=== PATIENT | male | born 1960 | race Caucasian/White ===

== ENCOUNTER 2018-05-27 14:09 | Inpatient (IN) | payer MEDICAID | END 2018-06-02 12:30 | disposition home health service (06) | LOC: ER 14:09 → ED HOLD 17:43 → SUR 3N 20:10 ==

== ENCOUNTER 2019-09-20 08:31 | Inpatient (IN) | payer MEDICAID ==
[~2019-09-20] VITALS: Ht 175.3 cm; Wt 109.0 kg
[~2019-09-20 08:31] MED LIST: AMLO5TAB16 PO; ATOR40TA72 PO; BARIUM SULFATE 700 MG TABLET PO ONE; FURO40TA4 PO; HYDR-4383 PO; PANT-47 PO; POTA8TAB8 PO; RIVA20TA PO; SUCR1ORA15 PO
[2019-09-20] MEDS ORDERED: CefTRIAXone/D5W-Rocephin 1gm 50 ML IV ONE (08:50)
[2019-09-20] MEDS ORDERED: vancomycin/NS 1 GM ADD-VANTAGE 250 ML IV ONE (08:50)
--- NOTE | 2019-09-20 08:57 | NUR ---
WAITNING ABX FROM PHARMACY. THEY WILL CALL WHEN READY.
--- NOTE | 2019-09-20 09:56 | NUR ---
MULTIPLE ATTEMPTS FOR BLOOD DRAW/IV WITHOUT SUCCESS. PICC RN PAGED AND AWARE. COVID SWAB DONE AND SENT.
--- NOTE | 2019-09-20 10:45 | NUR ---
PICC RN AT BEDSIDE FOR BETTER IV ACCESS AND BLOOD DRAW.
[2019-09-20 11:11] LABS: BASOPHILS # (AUTO) 0.1 X10'3 (0-0.2); BASOPHILS % (AUTO) 0.3 % (0-1); EOSINOPHILS % (AUTO) 0.1 % (0-6); HEMOGLOBIN 12.7 g/dl (14.0-17.9); LYMPHOCYTES # (AUTO) 0.7 X10'3 (1.1-4.8); LYMPHOCYTES % (AUTO) 3.6 % (21-51); MEAN CORPUSCULAR HEMOGLOBIN 27.4 PG (27.0-31.0); MEAN CORPUSCULAR HGB CONC 32.6 g/dL (33.0-36.5); MEAN CORPUSCULAR VOLUME 84.1 FL (78-98); MEAN PLATELET VOLUME 7.9 FL (7.4-10.4); MONOCYTES # (AUTO) 0.5 X10'3 (0-0.9); MONOCYTES % (AUTO) 2.6 % (2-12); NEUTROPHILS # (AUTO) 18.4 X10'3 (1.8-7.7); NEUTROPHILS % (AUTO) 93.4 % (42-75); PLATELET COUNT 289 X10'3 (140-440); RED BLOOD COUNT 4.64 X10'6 (4.70-6.10); WHITE BLOOD COUNT 19.7 X10'3 (4.5-11.0)
--- NOTE | 2019-09-20 11:13 | NUR ---
MID LINE ACCESS AND LAB DRAW WITH CXS DONE.
[2019-09-20 11:21] LABS: PARTIAL THROMBOPLASTIN TIME 27 SECONDS (22-32)
[2019-09-20 11:22] LABS: ALANINE AMINOTRANSFERASE 98 U/L (12-78); ALBUMIN 2.8 G/DL (3.4-5.0); ALBUMIN/GLOBULIN RATIO 0.7 (1.1-1.5); ALKALINE PHOSPHATASE 150 IU/L (46-116); ANION GAP 11 (8-16); ASPARTATE AMINO TRANSFERASE 62 U/L (10-37); BILIRUBIN,TOTAL 0.7 MG/DL (0.1-1.0); BLOOD UREA NITROGEN 28 MG/DL (7-18); BUN/CREATININE RATIO 11.3 (5.4-32.0); CALCIUM 7.7 MG/DL (8.5-10.1); CHLORIDE 106 MMOL/L (99-107); CREATININE 2.47 MG/DL (0.60-1.10); GLUCOSE 120 MG/DL (70-104); MAGNESIUM 1.8 MG/DL (1.5-2.4); POTASSIUM 3.9 MMOL/L (3.5-5.1); SODIUM 141 MMOL/L (135-145); TOTAL CARBON DIOXIDE 24.3 MMOL/L (24-32); TOTAL PROTEIN 6.9 G/DL (6.4-8.2); eGFR 27 ML/MIN
[2019-09-20] MEDS ORDERED: ringers solution, lacted 1,000 ML IV ONE ×4 (11:30→13:10)
--- NOTE | 2019-09-20 11:34 | NUR ---
assumed care of pt from Ngoc LOVE, Dr. Rose gave verbal order for lim, IVF bolus of LR per sespis protocol, pt has already received 500ml of IVF, Ngoc LOVE is assisting me with pt care at this time, CT on hold until covid results come back, per lab covid needs to be redone
[2019-09-20] MEDS ORDERED: acetaminophen 325mg tablet PO ONE ×2 (11:45→18:45)
--- NOTE | 2019-09-20 11:53 | NUR ---
temp re-checked. ua obtained, second covid swab sent as lab stated first was invalid.
[2019-09-20 12:00] LABS: CLARITY,URINE SLIGHTLY CLOUDY (Clear); GLUCOSE, URINE 100 mg/dl (Neg); KETONES,URINE TRACE mg/dl (Neg); LEUKOCYTE ESTERASE ,URINE NEGATIVE (Neg); NITRITES, URINE NEGATIVE (Neg); OCCULT BLOOD,URINE NEGATIVE (Neg); PH,URINE 6.5 (4.8-8.0); PROTEIN,URINE TRACE mg/dl (Neg)
[2019-09-20 12:01] LABS: COLOR,URINE DARK YELLOW (Yellow); UA COLLECTION TYPE CLN CATCH MIDSTREAM
[2019-09-20 12:09] LABS: MUCUS STRANDS MANY /LPF (Neg); SQUAMOUS EPITHELIAL CELL,UR FEW /LPF (FEW); TRANSITIONAL EPI CELLS,URINE FEW /HPF
[2019-09-20 12:11] LABS: BACTERIA,URINE NONE SEEN /HPF (Neg); CAL OXALATE CRYSTALS 2+ /HPF (NEGATIVE); RBC,URINE 0-2 /HPF (0-2); RENAL CELLS, URINE FEW /HPF
--- NOTE | 2019-09-20 13:10 | NUR ---
pt to CT, covid was negative, Dr Rose aware of temp 103.3, gave verbal order to give only 2 liters NS, 2nd liter infusing w/o, will set pt up for LP, pt is pleasantly confused, GCS 14, resp even and unlabored, skin p/w/d, mouth is very dry, pt had small soft, brown bowel movement
--- NOTE | 2019-09-20 13:21 | NUR ---
belongings placed in bag--has 1 pr shoes, socks, sweat pants, white tshirt, underwear were thrown away per pt request as he had bowel movement in them
[2019-09-20 13:33] LABS: URINE AMPHETAMINE SCREEN POSITIVE (Neg); URINE BARBITUATE SCREEN NEGATIVE (Neg); URINE BENZODIAZEPINES SCREEN NEGATIVE (Neg); URINE CANNABINOID SCREEN NEGATIVE (Neg); URINE COCAINE SCREEN NEGATIVE (Neg); URINE METHADONE SCREEN NEGATIVE (Neg); URINE OPIATE SCREEN NEGATIVE (Neg); URINE PHENCYCLIDINE SCREEN NEGATIVE (Neg)
[2019-09-20] MEDS ORDERED: ondansetron/PF 4mg/2ml inj IV ONE (14:25)
--- NOTE | 2019-09-20 14:25 | NUR ---
LUMBAR PUNCTURE DONE, HAD DIARRHEA--BABY YELLOW AND COFFEE GRD EMESIS, DR BRENNAN AWARE
[2019-09-20] MEDS: normal saline 1000ml 1,000 ML IV SCH (14:56)
[2019-09-20 14:57] LABS: GLUCOSE,CSF 80 MG/DL (40-75); TOTAL PROTEIN,CSF 58 MG/DL (15-45)
[2019-09-20] MEDS ORDERED: magnesium 2GM in 50ml NS 50 ML IV PRN (15:00)
[2019-09-20] MEDS ORDERED: magnesium Cl slow-release 64mg tablet PO PRN (15:00)
[2019-09-20] MEDS ORDERED: potassium CL 10mEq/100ml bag 100 ML IV PRN ×2 (15:00)
[2019-09-20] MEDS ORDERED: magnesium 4gm in 100ml NS 100 ML IV PRN (15:00)
[2019-09-20] MEDS ORDERED: ondansetron/PF 4mg/2ml inj IV PRN (15:00)
[2019-09-20] MEDS ORDERED: potassium Cl 20 mEq SR tablet PO PRN ×2 (15:00)
--- NOTE | 2019-09-20 15:04 | NUR ---
pt to CT,
[2019-09-20 15:11] LABS: LYMPHOCYTES,CSF 58 % (40-80); MONOCYTES,CSF 13 % (15-45); NEUTRO,CSF 29 % (0-6)
[2019-09-20 15:16] LABS: APPEARANCE,CSF CLEAR; CSF SUPERNATANT COLOR COLORLESS; CSF VOLUME 4 ML; TUBE# COUNTED 1; TUBE# COUNTED 4
[2019-09-20 15:18] LABS: CSF RBC 1675 /CU MM (0); CSF RBC 7 /CU MM (0); CSF WBC CT 4 /CU MM (0-5)
[2019-09-20 15:19] LABS: CSF WBC CT 4 /CU MM (0-5)
[2019-09-20] MEDS ORDERED: ipratropium/albuterol 3ml nebule NEB ONE (16:40)
--- NOTE | 2019-09-20 16:40 | NUR ---
pt incontinent to baby yellow stool, cleaned pt up, pt also c/o SOB, talking 5-6 word sentences, coarse wheezes bilaterally, Dr Pink at bedside to evaluate pt, difficult to obtain accurate pulse ox,
--- NOTE | 2019-09-20 16:48 | NUR ---
RT at bedside
[2019-09-20 17:16] LABS: ABG BASE EXCESS -0.9 mmol/L (-2.0-2.0); ABG HCO3 23.4 mmol/L (22.0-26.0); ABG OXYGEN SATURATION 66.6 % (94-97); ABG PO2 (T) 33.5 mmHg (75.0-100.0); ALLEN'S TEST POSITIVE; FLOW 4 L/min; FMetHb 0.1 % (0.0-1.5); FO2Hb 65.9 % (94-97); TOTAL HEMOGLOBIN 14.6 G/dl (14.0-18.0)
[2019-09-20 17:30] LABS: ABG BASE EXCESS 0.3 mmol/L (-2.0-2.0); ABG OXYGEN SATURATION 83.8 % (94-97); ABG PCO2 (T) 32.1 mmHg (35.0-48.0); ABG PO2 (T) 44.6 mmHg (75.0-100.0); ALLEN'S TEST POSITIVE; FCOHb 1.2 % (0.0-3.9); FLOW 15 L/min; FMetHb 0.3 % (0.0-1.5); FO2Hb 82.5 % (94-97); TOTAL HEMOGLOBIN 14.5 G/dl (14.0-18.0)
--- NOTE | 2019-09-20 18:39 | NUR ---
Dr Pink to consult with ICU, pt remains restless, vomiting small amounts of coffee ground emesis, incontinent of bowel, cleaned pt up again, pt is remains GCS 14, follows simple commands, pt to be moved to room 3, difficult to obtain accurate pulse ox
--- NOTE | 2019-09-20 18:51 | NUR ---
Pt was staurating in the 70s on 4 liters, pt sat 91 on 15 liters non-rebreather. MD navarrete
[2019-09-20] MEDS: azithromycin/NS 500mg/250ml 250 ML IV SCH (18:56)
[2019-09-20] MEDS ORDERED: diltiazem 5mg/ml 5ml inj. IV ONE (19:25)
[2019-09-20] MEDS ORDERED: diltiazem-D5W 125mg/125ml 125 ML IV SCH (19:25)
[2019-09-20] MEDS: K and/or MAG REPLACEMENT MC SCH (20:00)
[2019-09-20] MEDS: diltiazem-NS 100mg/100ml 100 ML IV SCH (20:08)
--- NOTE | 2019-09-20 20:22 | NUR ---
PT HAD LOOSE BOWEL MOVEMENT, CLEANED PT UP AGAIN, WAITING TO BE EVALUATED BY ICU
[2019-09-20] MEDS ORDERED: heparin 10,000 units/1 ML INJ IV ONE (21:25)
[2019-09-20] MEDS ORDERED: heparin 10,000 units/1 ML INJ IV PRN (21:25)
--- NOTE | 2019-09-20 21:25 | NUR ---
pt is resting quietly on gurney, has been evaluated by Tian BIRD, plan to admit to ICU, will remain on NRB at this time
[2019-09-20] MEDS: heparin 25,000 UNIT/250ml bag 250 ML IV SCH (22:02)
--- NOTE | 2019-09-20 22:05 | NUR ---
heparin gtt started per protocol, pt continues to rest quietly on bed, resp even and unlabored, on NRB
[2019-09-20 23:00] VITALS: BP 120/57
[2019-09-20 23:11] LABS: ABG BASE EXCESS -4.7 mmol/L (-2.0-2.0); ABG HCO3 19.6 mmol/L (22.0-26.0); ABG OXYGEN SATURATION 95.3 % (94-97); ABG PCO2 (T) 34.8 mmHg (35.0-48.0); ABG PO2 (T) 80.9 mmHg (75.0-100.0); ALLEN'S TEST POSITIVE; FCOHb 0.1 % (0.0-3.9); FLOW 15 L/min; FMetHb 0.1 % (0.0-1.5); FO2Hb 95.1 % (94-97); PATIENT TEMPERATURE 37.4; TOTAL HEMOGLOBIN 13.2 G/dl (14.0-18.0)
[2019-09-21] VITALS (25 sets, daily range): BP systolic 107–154; BP diastolic 56–88
--- NOTE | 2019-09-21 00:05 | NUR ---
pt has red rash all over abdomen and chest. Pt received IV vancomycin in the ED. LILLIE Durand notified. no orders received. Pt having coffee ground emesis, on heparin drip. [employer] notified- will recheck morning labs.
[2019-09-21] MEDS: normal saline 1000ml 1,000 ML IV SCH (00:56)
[2019-09-21 05:55] LABS: ALBUMIN 2.4 G/DL (3.4-5.0); ANION GAP 8 (8-16); BLOOD UREA NITROGEN 43 MG/DL (7-18); BUN/CREATININE RATIO 20.2 (5.4-32.0); CALCIUM 7.6 MG/DL (8.5-10.1); CHLORIDE 107 MMOL/L (99-107); CREATININE 2.13 MG/DL (0.60-1.10); GLUCOSE 127 MG/DL (70-104); MAGNESIUM 1.9 MG/DL (1.5-2.4); POTASSIUM 4.2 MMOL/L (3.5-5.1); SODIUM 139 MMOL/L (135-145); TOTAL CARBON DIOXIDE 24.5 MMOL/L (24-32); eGFR 32 ML/MIN
[2019-09-21 06:14] LABS: BASOPHILS # (AUTO) 0.1 X10'3 (0-0.2); BASOPHILS % (AUTO) 0.6 % (0-1); EOSINOPHILS % (AUTO) 0.1 % (0-6); HEMATOCRIT 39.6 % (42.0-52.0); HEMOGLOBIN 12.9 g/dl (14.0-17.9); LYMPHOCYTES # (AUTO) 1.5 X10'3 (1.1-4.8); LYMPHOCYTES % (AUTO) 12.6 % (21-51); MEAN CORPUSCULAR HEMOGLOBIN 28.2 PG (27.0-31.0); MEAN CORPUSCULAR HGB CONC 32.7 g/dL (33.0-36.5); MEAN CORPUSCULAR VOLUME 86.2 FL (78-98); MONOCYTES # (AUTO) 0.4 X10'3 (0-0.9); NEUTROPHILS # (AUTO) 9.9 X10'3 (1.8-7.7); NEUTROPHILS % (AUTO) 83.7 % (42-75); PLATELET COUNT 192 X10'3 (140-440); RED BLOOD COUNT 4.59 X10'6 (4.70-6.10); RED CELL DISTRIBUTION WIDTH 16.5 % (11.5-14.5); WHITE BLOOD COUNT 11.8 X10'3 (4.5-11.0)
--- NOTE | 2019-09-21 06:20 | NUR ---
Report received from KATE Colon
[2019-09-21] MEDS: K and/or MAG REPLACEMENT MC SCH ×2 (07:52→18:41)
[2019-09-21] MEDS ORDERED: CefTRIAXone/D5W-Rocephin 1gm 50 ML IV SCH (08:00)
[2019-09-21] MEDS: azithromycin/NS 500mg/250ml 250 ML IV SCH (08:44)
[2019-09-21] MEDS: diltiazem-NS 100mg/100ml 100 ML IV SCH (08:45)
[2019-09-21] MEDS: heparin 25,000 UNIT/250ml bag 250 ML IV SCH (10:28)
[2019-09-21 10:43] LABS: CLARITY,URINE SLIGHTLY CLOUDY (Clear); COLOR,URINE YELLOW (Yellow); GLUCOSE, URINE 100 mg/dl (Neg); KETONES,URINE NEGATIVE (Neg); LEUKOCYTE ESTERASE ,URINE NEGATIVE (Neg); NITRITES, URINE NEGATIVE (Neg); OCCULT BLOOD,URINE TRACE-INTACT (Neg); PROTEIN,URINE 30 mg/dl (Neg)
[2019-09-21 10:45] LABS: UA COLLECTION TYPE VOIDED
[2019-09-21 10:51] LABS: MUCUS STRANDS FEW /LPF (Neg); SQUAMOUS EPITHELIAL CELL,UR FEW /LPF (FEW)
[2019-09-21 10:52] LABS: COARSE GRANULAR CAST 0-3 /LPF (NEGATIVE); FINE GRANULAR CAST 0-3 /LPF (NEGATIVE); HYALINE CASTS 0-3 /LPF (NEGATIVE)
[2019-09-21 10:53] LABS: RBC,URINE 0-2 /HPF (0-2); WBC CLUMPS,URINE FEW /HPF (NEGATIVE); WBC,URINE 0-4 /HPF (0-4)
[2019-09-21 10:55] LABS: BACTERIA,URINE 1+ /HPF (Neg)
[2019-09-21 11:15] LABS: UA EOSINOPHILS NO EOS /HPF
[2019-09-21] MEDS ORDERED: vancomycin/NS 1 GM ADD-VANTAGE 250 ML IV SCH (16:30)
[2019-09-21] MEDS: LORazepam 1 MG tablet PO PRN (16:45)
--- NOTE | 2019-09-21 16:51 | NUR ---
PER JEANNIE RN MIDLINE OK LINE IS NEEDED ONLY FOR BLOOD DRAWS. 5F DUAL LUMEN MIDLINE SUCCESSFUL USING ULTRASOUND GUIDANCE WITH TIP ENDING MID-AXILLARY X'S 1 ATTEMPT, LINE FLUSHES AND ASPIRATES BLOOD EASILY.
[2019-09-21] MEDS ORDERED: VANCOMYCIN 1,500MG inj. 1,500 MG in normal saline 500ml IV soln 500 ML IV SCH (18:00)
--- NOTE | 2019-09-21 18:06 | NUR ---
Report given to night nurse.
--- NOTE | 2019-09-21 18:06 | NUR ---
Patient in room CICU 2009. I have received report from Betty LOVE and had the opportunity to ask questions and assume patient care. Pt received sleeping. Rhythm is A fib HR 94-100 with an occasional PVC. On humidified oxygen at 2L NC with O2 saturation 94-96%. Cardizem drip @ 5mg/hr. Midline IV access left upper arm. No distress at shift change.
[2019-09-21] MEDS ORDERED: diltiazem-NS 100mg/100ml 100 ML IV SCH (20:30)
[2019-09-22] VITALS (23 sets, daily range): BP systolic 121–185; BP diastolic 60–98
[2019-09-22 03:12] LABS: BASOPHILS % (AUTO) 0.6 % (0-1); EOSINOPHILS # (AUTO) 0.2 X10'3 (0-0.9); EOSINOPHILS % (AUTO) 2.2 % (0-6); HEMATOCRIT 34.6 % (42.0-52.0); HEMOGLOBIN 11.5 g/dl (14.0-17.9); LYMPHOCYTES # (AUTO) 1.2 X10'3 (1.1-4.8); LYMPHOCYTES % (AUTO) 14.5 % (21-51); MEAN CORPUSCULAR HEMOGLOBIN 27.7 PG (27.0-31.0); MEAN CORPUSCULAR HGB CONC 33.2 g/dL (33.0-36.5); MEAN CORPUSCULAR VOLUME 83.4 FL (78-98); MEAN PLATELET VOLUME 8.2 FL (7.4-10.4); MONOCYTES # (AUTO) 0.5 X10'3 (0-0.9); NEUTROPHILS # (AUTO) 6.4 X10'3 (1.8-7.7); NEUTROPHILS % (AUTO) 76.7 % (42-75); PLATELET COUNT 196 X10'3 (140-440); RED BLOOD COUNT 4.15 X10'6 (4.70-6.10); RED CELL DISTRIBUTION WIDTH 16.3 % (11.5-14.5); WHITE BLOOD COUNT 8.3 X10'3 (4.5-11.0)
[2019-09-22 03:25] LABS: ALBUMIN 2.2 G/DL (3.4-5.0); ANION GAP 7 (8-16); BLOOD UREA NITROGEN 27 MG/DL (7-18); BUN/CREATININE RATIO 22.5 (5.4-32.0); CALCIUM 8.3 MG/DL (8.5-10.1); CHLORIDE 104 MMOL/L (99-107); GLUCOSE 101 MG/DL (70-104); MAGNESIUM 1.9 MG/DL (1.5-2.4); POTASSIUM 3.9 MMOL/L (3.5-5.1); SODIUM 136 MMOL/L (135-145); TOTAL CARBON DIOXIDE 25.4 MMOL/L (24-32); eGFR 62 ML/MIN
[2019-09-22] MEDS: LORazepam 1 MG tablet PO PRN ×2 (04:09→20:53)
[2019-09-22] MEDS: HYDROcodone/acetaminophen 10/325mg tab PO PRN ×2 (05:19→19:12)
--- NOTE | 2019-09-22 05:26 | NUR ---
Uneventful night. Pt dramatic with all expressions. Talks in his sleep, becomes extremely loud when expressing a groan, coughing or when talking to himself about his pain. Ativan given for his anxiety. Pt wants to go home. Instructed regarding his infection/ treatment & need for hospitalization. No further episodes of nausea post zofran. Remains in afib HR 80-90's Cardizem drip at 5mg/hr.
--- NOTE | 2019-09-22 05:30 | NUR ---
Dr Elias in to see patient. No surgical intervention at this time. Pt to be medically treated.
[2019-09-22 05:38] LABS: PHOSPHORUS 2.4 MG/DL (2.3-4.5)
--- NOTE | 2019-09-22 06:21 | NUR ---
Problems reprioritized. Patient report given, questions answered & plan of care reviewed with Charu LOVE.
--- NOTE | 2019-09-22 06:29 | NUR ---
Patient in room CICU 2009. I have received report from KATE Goyal and had the opportunity to ask questions and assume patient care. Patient asleep in bed and in no acute distress.
[2019-09-22] MEDS: K and/or MAG REPLACEMENT MC SCH ×2 (08:00→20:00)
[2019-09-22] MEDS: atorvastatin 20mg tablet PO SCH (08:15)
[2019-09-22] MEDS: VANCOMYCIN 1,500MG inj. 1,500 MG in normal saline 500ml IV soln 500 ML IV SCH ×2 (10:03→20:55)
[2019-09-22] MEDS: mineral oil/pet hy-phy 85gm ointment TP SCH (10:20)
--- NOTE | 2019-09-22 10:28 | NUR ---
WOUND INFECTION EDUCATION PROVIDED BY WOUND CARE 1. Patient instructed to call their primary doctor, or go the ED immediately if any of the following symptoms occur: * Increased pain in wound * Increase in drainage from the wound * Redness in the skin surrounding the wound * Warmth in the skin surrounding the wound * Bleeding from the wound * Temperature of 101 or greater 2. If any of these occur while in the hospital tell a nurse immediately. Addendum: 09/22/19 at 1028 by Liliane Benavidez RN Amended: Links added.
--- NOTE | 2019-09-22 10:32 | NUR ---
Orders to start on 5mg Eliquis PO BID put in per Dr. Murphy.
[2019-09-22] MEDS: diltiazem CD 120mg capsule (once-daily) PO SCH (14:13)
--- NOTE | 2019-09-22 14:23 | NUR ---
Stopped cardizem drip per MD orders and gave oral cardizem per MD orders.
--- NOTE | 2019-09-22 18:15 | NUR ---
Problems reprioritized. Patient report given, questions answered & plan of care reviewed with Tez RN. Patient stable at transfer of care.
--- NOTE | 2019-09-22 18:30 | NUR ---
Patient in room CICU 2009. I have received report from Charu Herrera RN and had the opportunity to ask questions and assume patient care.
[2019-09-22] MEDS: lactobacillus rhamnosus 10,000 MMU CELLS/CAPSULE PO SCH (19:11)
[2019-09-22] MEDS: apixaban 5mg tablet PO SCH (19:12)
[2019-09-23] VITALS (16 sets, daily range): BP systolic 120–171; BP diastolic 54–88
[2019-09-23 05:27] LABS: BASOPHILS % (AUTO) 0.6 % (0-1); EOSINOPHILS # (AUTO) 0.2 X10'3 (0-0.9); EOSINOPHILS % (AUTO) 3.1 % (0-6); HEMATOCRIT 35.8 % (42.0-52.0); HEMOGLOBIN 11.8 g/dl (14.0-17.9); LYMPHOCYTES # (AUTO) 1.4 X10'3 (1.1-4.8); LYMPHOCYTES % (AUTO) 19.6 % (21-51); MEAN CORPUSCULAR HEMOGLOBIN 27.4 PG (27.0-31.0); MEAN CORPUSCULAR HGB CONC 32.8 g/dL (33.0-36.5); MEAN CORPUSCULAR VOLUME 83.5 FL (78-98); MEAN PLATELET VOLUME 8.2 FL (7.4-10.4); MONOCYTES # (AUTO) 0.5 X10'3 (0-0.9); MONOCYTES % (AUTO) 7.1 % (2-12); NEUTROPHILS # (AUTO) 5.2 X10'3 (1.8-7.7); NEUTROPHILS % (AUTO) 69.6 % (42-75); PLATELET COUNT 206 X10'3 (140-440); RED BLOOD COUNT 4.28 X10'6 (4.70-6.10); RED CELL DISTRIBUTION WIDTH 15.9 % (11.5-14.5); WHITE BLOOD COUNT 7.4 X10'3 (4.5-11.0)
[2019-09-23 05:37] LABS: ALBUMIN 2.3 G/DL (3.4-5.0); ANION GAP 10 (8-16); BLOOD UREA NITROGEN 16 MG/DL (7-18); BUN/CREATININE RATIO 16.5 (5.4-32.0); CALCIUM 8.1 MG/DL (8.5-10.1); CHLORIDE 103 MMOL/L (99-107); CREATININE 0.97 MG/DL (0.60-1.10); GLUCOSE 92 MG/DL (70-104); MAGNESIUM 1.7 MG/DL (1.5-2.4); POTASSIUM 3.6 MMOL/L (3.5-5.1); SODIUM 136 MMOL/L (135-145); TOTAL CARBON DIOXIDE 22.8 MMOL/L (24-32); eGFR 79 ML/MIN
--- NOTE | 2019-09-23 06:18 | NUR ---
Problems reprioritized. Patient report given, questions answered & plan of care reviewed with Tripp LOVE.
--- NOTE | 2019-09-23 06:33 | NUR ---
Patient in room CICU 2009. I have received report from Tez RN and had the opportunity to ask questions and assume patient care.
[2019-09-23] MEDS: K and/or MAG REPLACEMENT MC SCH (08:00)
[2019-09-23] MEDS: diltiazem CD 120mg capsule (once-daily) PO SCH (09:09)
[2019-09-23] MEDS: atorvastatin 20mg tablet PO SCH (09:10)
[2019-09-23] MEDS: lactobacillus rhamnosus 10,000 MMU CELLS/CAPSULE PO SCH (09:10)
[2019-09-23] MEDS: HYDROcodone/acetaminophen 10/325mg tab PO PRN (09:10)
[2019-09-23] MEDS: apixaban 5mg tablet PO SCH (09:10)
[2019-09-23] MEDS: VANCOMYCIN 1,500MG inj. 1,500 MG in normal saline 500ml IV soln 500 ML IV SCH (09:11)
[2019-09-23] MEDS: mineral oil/pet hy-phy 85gm ointment TP SCH (09:11)
[2019-09-23] MEDS ORDERED: LINE600T11 PO (11:36)
[2019-09-23] MEDS ORDERED: furosemide 20MG tablet PO ONE (14:55)
--- NOTE | 2019-09-23 15:54 | NUR ---
Patient safe for discharge per MD orders, discharge instructions reviewed, questions answered, Midline DC x2, tele DC, Wound pic taken of R foot, prescriptions called into [facility] on [address], only belongings were clothing and shoes, patient able to walk to [facility], picked up by friend. Addendum: 09/23/19 at 1557 by Tripp Collins RN disregard, wrong patient. Addendum: 09/23/19 at 1559 by Tripp Collins RN Disregard addendum, this was correct patient.
--- NOTE | 2019-09-23 17:08 | NUR ---
patient left a bag with dirty clothes and shoes. Picked up by [facility] and stored with patient label.
[2019-09-23] MEDS ORDERED: VANCOMYCIN LEVEL IV ONE (20:30)
== END 2019-09-23 17:29 | disposition home or self-care (01) | DRG 720 ==
LOC: ER 08:32 → ED HOLD 14:56 → CICU 2S 22:40
PROVIDERS: ADMIT Internal Medicine; ATTEND Internal Medicine
DX: A41.9 Sepsis, unspecified organism (principal); E78.5 Hyperlipidemia, unspecified; F15.10 Other stimulant abuse, uncomplicated; I10 Essential (primary) hypertension; I48.91 Unspecified atrial fibrillation; F41.9 Anxiety disorder, unspecified; J96.01 Acute respiratory failure with hypoxia; L03.115 Cellulitis of right lower limb; N17.9 Acute kidney failure, unspecified; R65.20 Severe sepsis without septic shock; Z86.73 Personal history of transient ischemic attack (TIA), and cerebral infarction without residual deficits; Z87.891 Personal history of nicotine dependence; Z20.828 Contact with and (suspected) exposure to other viral communicable diseases
CPT/HCPCS: 36415; 36600; 70450; 71045; 73700; 74176; 74220; 76937; 78582; 80048; 80053; 80305; 81001; 82570; 82803; 82945; 83605; 83735; 84100; 84145; 84157; 84300; 85018; 85025; 85379; 85610; 85730; 87015; 87040; 87070; 87075; 87077; 87081; 87088; 87186; 87207; 87635; 89051; 93005; 93970; 94640; 94760; 97116; 97161; 97530; 99291; A9539; A9540; G0378; J0456; J0696; J1644; J2405; J3370; J3490; J7030; J7040; J7120